=== PATIENT | male | born 1990 | race Caucasian/White ===

== ENCOUNTER 2020-01-17 10:13 | Inpatient (IN) ==
[2020-01-17 11:04] LABS: ABS Basophils 0.1 10^3/ul (0-0.2); ABS Lymphocytes 1.3 10^3/ul (1.0-4.8); ABS Neutrophils 6.2 10^3/ul (1.5-7.7); Eosinophil % 0.4 %; Hematocrit 36 % (42-52); Hemoglobin 11.9 g/dL (14.0-18.0); Lymphocyte % 15.4 %; Mean Corpuscular HGB Conc 33 g/dL (31-36); Mean Corpuscular Hemoglobin 29 pg (27-31); Mean Corpuscular Volume 85 fL (80-94); Mean Platelet Volume 7.3 fL (7.4-10.4); Platelet Count 217 10^3/uL (150-450); Red Blood Count 4.18 10^6 /uL (4.18-5.48); Red Cell Distribution Width 15 % (10-15); White Blood Count 8.7 10^3/uL (3.5-10.8)
[2020-01-17 11:12] LABS: Urine Appearance Clear; Urine Bilirubin Negative (Negative); Urine Blood Negative (Negative); Urine Color Yellow; Urine Glucose 1+(50 mg/dL) (Negative); Urine Ketones Negative (Negative); Urine Nitrite Negative (Negative); Urine Protein Negative (Negative); Urine Specific Gravity 1.021 (1.010-1.030); Urine Urobilinogen Negative (Negative)
[2020-01-17 11:42] LABS: ALT 45 U/L (7-52); AST 19 U/L (13-39); Albumin 4.2 g/dL (3.2-5.2); Albumin/Globulin Ratio 1.7 (1-3); Alkaline Phosphatase 35 U/L (34-104); Anion Gap 5 mmol/L (2-11); BUN/Creatinine Ratio 16.8 (8-20); Blood Urea Nitrogen 17 mg/dL (6-24); CO2 Carbon Dioxide 27 mmol/L (22-32); Calcium 9.1 mg/dL (8.6-10.3); Chloride 106 mmol/L (101-111); EGFR African American 105.7 (>60); EGFR Non-African American 87.3 (>60); Globulin 2.5 g/dL (2-4); Glucose 93 mg/dL (70-100); Magnesium 2.1 mg/dL (1.9-2.7); Potassium 4.3 mmol/L (3.5-5.0); Sodium 138 mmol/L (135-145); Total Protein 6.7 g/dL (6.4-8.9); Urine Benzodiazepine Screen Presumptive Positive (None Detect); Urine Cannabinoids Screen None Detected (None Detect); Urine Opiates Screen None Detected (None Detect)
[2020-01-17 11:51] LABS: Alcohol, S < 10 mg/dL (<10); Salicylate < 2.50 mg/dL (<30)
[2020-01-17 11:53] LABS: Acetaminophen < 15 mcg/mL
[2020-01-17 12:06] LABS: TSH Ultra Thyroid Stim Horm 2.42 mcIU/mL (0.34-5.60)
[2020-01-18] MEDS: Vitamin THERAPEUTIC TAB PO SCH (10:08)
[2020-01-18] MEDS: Nicotine PATCH 14 MG/24 HR PATCH TRANSDERM SCH (13:19)
[2020-01-19] MEDS: Nicotine GUM 2MG FRUIT FLAVOR PO PRN (00:46)
[2020-01-19] MEDS: Nicotine PATCH 14 MG/24 HR PATCH TRANSDERM SCH (09:09)
[2020-01-19] MEDS: Vitamin THERAPEUTIC TAB PO SCH (09:10)
[2020-01-19] MEDS: Al Hydrox/Mg Hydrox/Simet LIQ 30 ML UDC PO PRN ×2 (14:10→20:37)
[2020-01-20] MEDS: Al Hydrox/Mg Hydrox/Simet LIQ 30 ML UDC PO PRN ×2 (01:41→19:08)
[2020-01-20] MEDS: Nicotine PATCH 14 MG/24 HR PATCH TRANSDERM SCH (08:45)
[2020-01-20] MEDS: Vitamin THERAPEUTIC TAB PO SCH (08:45)
[2020-01-20] MEDS: Nicotine GUM 2MG FRUIT FLAVOR PO PRN (08:47)
[2020-01-21] MEDS: Vitamin THERAPEUTIC TAB PO SCH (08:20)
[2020-01-21] MEDS: Nicotine PATCH 14 MG/24 HR PATCH TRANSDERM SCH (08:20)
[2020-01-21] MEDS: Nicotine GUM 2MG FRUIT FLAVOR PO PRN (08:58)
[2020-01-22] MEDS: Al Hydrox/Mg Hydrox/Simet LIQ 30 ML UDC PO PRN ×2 (00:11→09:54)
[2020-01-22] MEDS: Nicotine PATCH 14 MG/24 HR PATCH TRANSDERM SCH (08:30)
[2020-01-22] MEDS: Vitamin THERAPEUTIC TAB PO SCH (08:33)
[2020-01-22] MEDS ORDERED: Naltrexone INJ 380 MG IM ONE (12:52)
[2020-01-22] MEDS: Nicotine GUM 2MG FRUIT FLAVOR PO PRN (17:53)
[2020-01-23] MEDS: Nicotine PATCH 14 MG/24 HR PATCH TRANSDERM SCH (09:08)
[2020-01-23] MEDS: Vitamin THERAPEUTIC TAB PO SCH (09:10)
[2020-01-23] MEDS: Al Hydrox/Mg Hydrox/Simet LIQ 30 ML UDC PO PRN ×2 (09:43→21:05)
[2020-01-24] MEDS: Nicotine PATCH 14 MG/24 HR PATCH TRANSDERM SCH (09:31)
[2020-01-24] MEDS: Vitamin THERAPEUTIC TAB PO SCH (09:31)
[2020-01-24 11:55] VITALS: BP 134/77
== END 2020-01-24 13:10 | disposition home or self-care (01) | DRG 897 ==
LOC: ED 10:13 → BSU 01-18 02:30
PROVIDERS: ADMIT Psychiatry & Neurology Psychiatry; ATTEND Psychiatry & Neurology Psychiatry